=== PATIENT | female | born 1995 | race African-American/Black ===

== ENCOUNTER 2017-01-15 10:12 | Emergency (ER) | payer OTHER ==
[~2017-01-15] VITALS: Ht 170.2 cm; Wt 92.3 kg
[~2017-01-15 10:12] MED LIST: EPIPEN ADU0.3 MG/0.3 IM; FERROUS SULFAT325 MG PO; FLEXERIL5 MG PO; INDOCIN25 MG PO; Motrin PO; NAPROSYN500 MG PO; NORCO 5/3251 TABLET PO; Natalcare Rx,Pramile PO; PREDNISONE20 MG PO; Slow Fe PO; TRAMADOL HCL50 MG PO; VENTOLIN HFA18 GM IH; Vicodin,Norco 5/325 PO
[2017-01-15] MEDS ORDERED: NAPROSYN500 MG PO (11:15)
[2017-01-15 12:08] VITALS: BP 124/70
== END 2017-01-15 12:09 | disposition home or self-care (01) ==
LOC: EME 10:12
PROC: 2W3MX1Z Immobilization of Left Lower Extremity using Splint (ICD-10-PCS; principal; 2017-01-15)
DX: S63.502A Unspecified sprain of left wrist, initial encounter (principal); Y04.2XXA Assault by strike against or bumped into by another person, initial encounter
CPT/HCPCS: 73130; 99281; 99283